=== PATIENT | female | born 1990 | race Two or more races ===

== ENCOUNTER 2019-06-26 19:19 | Emergency (ER) | payer OTHER ==
[2019-06-26] MEDS ORDERED: FENTANYL CITRATE INJ/PF 100 MCG/2 ML AMPUL IV ONE (19:51)
[2019-06-26 20:03] LABS: ABSOLUTE BASOPHILS # (AUTO) 0.1 10^3/uL (0.0-0.2); ABSOLUTE LYMPHOCYTES (AUTO) 1.9 10^3/uL (0.5-4.7); ABSOLUTE MONOCYTES (AUTO) 0.4 10^3/uL (0.1-1.4); ABSOLUTE NEUT (AUTO) 10.4 10^3/uL (1.7-8.2); BASOPHILS % (AUTO) 0.4 % (0-2); EOSINOPHILS % (AUTO) 0.3 % (0-6); HEMATOCRIT 36.7 % (36.0-47.0); HEMOGLOBIN 12.4 g/dL (12.0-15.5); LYMPHOCYTES % (AUTO) 14.7 % (13-45); MEAN CORPUSCULAR HEMOGLOBIN 31.5 pg (27.0-33.4); MEAN CORPUSCULAR VOLUME 93 fl (80-97); MONOCYTES % (AUTO) 3.5 % (3-13); PLATELET COUNT 228 10^3/uL (150-450); RED BLOOD COUNT 3.96 10^6/uL (3.72-5.28); RED CELL DISTRIBUTION WIDTH 13.7 % (11.5-14.0); SEGMENTED NEUTROPHILS % (AUTO) 81.1 % (42-78); TOTAL CELLS COUNTED % (AUTO) 100 %; WHITE BLOOD COUNT 12.9 10^3/uL (4.0-10.5)
[2019-06-26 20:15] LABS: ALBUMIN 4.1 g/dL (3.5-5.0); ALKALINE PHOSPHATASE 107 U/L (38-126); ANION GAP 9 (5-19); ASPARTATE AMINO TRANSFERASE 31 U/L (14-36); BILIRUBIN,TOTAL 0.5 mg/dL (0.2-1.3); BLOOD UREA NITROGEN 15 mg/dL (7-20); CALCIUM 9.1 mg/dL (8.4-10.2); CARBON DIOXIDE 27 mmol/L (22-30); CHLORIDE 103 mmol/L (98-107); GLUCOSE 150 mg/dL (75-110); POTASSIUM 3.8 mmol/L (3.6-5.0); PROTHROMBIN TIME 13.2 SEC (11.4-15.4); TOTAL PROTEIN 7.2 g/dL (6.3-8.2)
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
[2019-06-26] MEDS ORDERED: MORPHINE SULFATE 10 MG/ML INJ IV ONE (20:48)
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
[2019-06-26] MEDS ORDERED: FENTANYL CITRATE INJ/PF 100 MCG/2 ML AMPUL IV PRN ×2 (23:10→23:11)
[2019-06-26] MEDS ORDERED: MIDAZOLAM 2 MG/2 ML INJ IV ONE ×2 (23:11→23:12)
[2019-06-26 23:23] LABS: APPEARANCE,URINE CLEAR; BILIRUBIN,URINE NEGATIVE (NEGATIVE); COLOR,URINE YELLOW; GLUCOSE, URINE NEGATIVE (NEGATIVE); KETONES,URINE NEGATIVE (NEGATIVE); LEUKOCYTE ESTERASE,URINE NEGATIVE (NEGATIVE); NITRITE,URINE NEGATIVE (NEGATIVE); PROTEIN,URINE NEGATIVE (NEGATIVE); UROBILINOGEN,URINE NEGATIVE mg/dL (<2.0)
[2019-06-26 23:27] LABS: URINE SPECIFIC GRAVITY > 1.060
--- NOTE | 2019-06-27 01:24 | RADIOLOGY REPORT (SQ) ---
Left wrist radiographs: 06/27/2019 12:22 AM CDT TECHNIQUE: AP, lateral, oblique images of the left wrist were obtained. COMPARISON: Left wrist radiographs from earlier on the same day HISTORY: 29-year-old patient with left wrist pain recent reduction. FINDINGS: There is an acute, intra-articular, comminuted fracture through the left radius which demonstrate improved alignment prior imaging. There is casting material which limits evaluation for fine bony detail. There is diffuse overlying soft tissue swelling. IMPRESSION: The acute intra-articular left radial fracture demonstrates significantly improved alignment since prior imaging.
[2019-06-27 02:02] VITALS: BP 121/66
== END 2019-06-27 02:01 | disposition home or self-care (01) ==
LOC: ER 19:19
DX: S52.572A Other intraarticular fracture of lower end of left radius, initial encounter for closed fracture (principal); S30.811A Abrasion of abdominal wall, initial encounter; M54.9 Dorsalgia, unspecified; R10.9 Unspecified abdominal pain; M25.532 Pain in left wrist; V43.52XA Car driver injured in collision with other type car in traffic accident, initial encounter
CPT/HCPCS: 96376; 99284; 99152; 96374; 96375; 36415; 83690; 84703; 85025; 85610; 81025; 80053; 81001; 73090; 73130; 73100; 73110; 70450; 71260; 72125; 74177; 25605; J2250; J3010 ×2; J2270

== ENCOUNTER 2019-06-29 01:57 | Emergency (ER) | payer OTHER ==
[2019-06-29 02:09] VITALS: BP 115/70
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
[2019-06-29] MEDS ORDERED: ONDANSETRON ODT 4 MG TAB (6 TAB/ER DISP) PO PRN (04:58)
[2019-06-29] MEDS ORDERED: HYDROCODONE/ACETAMINOPHEN 5-325 MG (6 TAB/ER DISP) PO PRN (04:58)
== END 2019-06-29 05:30 | disposition home or self-care (01) ==
LOC: ER 01:57
DX: S52.592D Other fractures of lower end of left radius, subsequent encounter for closed fracture with routine healing (principal); V49.9XXD Car occupant (driver) (passenger) injured in unspecified traffic accident, subsequent encounter; R11.0 Nausea; T39.95XA Adverse effect of unspecified nonopioid analgesic, antipyretic and antirheumatic, initial encounter; Z98.890 Other specified postprocedural states
CPT/HCPCS: 99283